=== PATIENT | female | born 1940 | race Caucasian/White ===

== ENCOUNTER → 2016-08-24 | Outpatient (CLI) | payer MEDICARE, SELFPAY ==
--- NOTE | 2016-08-24 10:12 | XR ---
Abdomen HISTORY: Kidney stones, pain on left side Frontal view of the abdomen submitted and correlated to prior abdomen 22 Dec 2014 Multiple calcifications are present within the bilateral kidneys. There are 5 calcifications noted on the right, the largest calcifications are at the mid pole measuring approximately 8 mm, upper pole c alcification measures 9 mm. The left kidney is somewhat obscured by overlying bowel gas, one calcific ation thought present measuring approximately 6 mm. Lung bases are clear. There is no pneumoperitoneu m or bowel obstruction. Vascular calcifications are present, there is a spinal curvature. No obstruct ion or pneumoperitoneum. IMPRESSION: Bilateral nephrolithiasis is suspected.
== END | disposition home or self-care (01) ==
LOC: RADXRMAIN 09:43
PROVIDERS: ATTEND Urology
DX: N20.0 Calculus of kidney (principal)
CPT/HCPCS: 74000

== ENCOUNTER 2016-10-01 07:22 | Day surgery (SDC) | payer MEDICARE, SELFPAY ==
[2016-09-27 10:34] VITALS: BMI 16.6
[~2016-10-01 07:22] MED LIST: LACTATED RINGERS 1,000 ML IV SCH
[2016-10-01 08:07] VITALS: TEMP 97.9
--- NOTE | 2016-10-01 08:09 | XR ---
EXAMINATION TYPE: XR KUB DATE OF EXAM: 10/01/2016 7:59 AM CLINICAL DATA: 75 year-old female prelithotripsy, left-sided stone. [facility] COMPARISON: 08/24/2016 FINDINGS: Nonobstructive bowel gas pattern with a mild to moderate scattered stool. Atherosclerotic calcificati on seen throughout the aorta. There is bilateral nephrolithiasis with approximately 5 calculi on the right measuring up to 8 mm and at least 5 on the left measuring up to 6 mm. Of the stones on the right side appear to have shifted position. Calcific densities in the pelvis is suspected to be vascular. IMPRESSION: Bilateral nephrolithiasis measuring up to 8 mm on the right and 6 mm on the left.
[2016-10-01] MEDS ORDERED: LIDOCAINE 1% 20 ML VIAL (10MG/ML) FOR IV START SQ ONE (08:11)
[2016-10-01 08:37] LABS: Anion Gap 9 mmol/L; Blood Urea Nitrogen 18 mg/dL (7-17); Calcium 8.7 mg/dL (8.4-10.2); Carbon Dioxide 30 mmol/L (22-30); Chloride 106 mmol/L (98-107); Glucose 104 mg/dL (74-99); Non-African American GFR(MDRD) >60 (>60 ml/min/1.73 sqM); Potassium 3.5 mmol/L (3.5-5.1); Sodium 145 mmol/L (137-145)
[2016-10-01] MEDS ORDERED: MIDAZOLAM 2 MG/2 ML VIAL ONE (08:51)
[2016-10-01] MEDS ORDERED: PROPOFOL 10 MG/ML 20 ML VIAL IV ONE (08:51)
[2016-10-01] MEDS ORDERED: fentaNYL (PF) 50 MCG/ML 2 ML AMP ONE (08:51)
[2016-10-01] MEDS ORDERED: PHENYLEPHRINE-0.9% NACL SYG 1 MG/10 ML SYRINGE ONE (08:51)
[2016-10-01 09:44] VITALS: PULSE 86
[2016-10-01 10:00] VITALS: BP 121/78; RESP 18
--- NOTE | 2016-10-01 20:49 | OP ---
DATE OF SERVICE: 10/01/2016 SURGEON: MIA GIORDANO MD PREOPERATIVE DIAGNOSIS: Left renal calculi. POSTOPERATIVE DIAGNOSIS: Left renal calculi. OPERATION: Extracorporeal shockwave lithotripsy of left renal calculi. ANESTHESIA: Intravenous sedation. The patient is a 75-year-old female with a history of urolithiasis who recently developed left flank pain. She was evaluated by Dr. Riggins and noted to have several 2 to 4 mm calculi in the lower pole of the left kidney. Treatment options were reviewed and the patient elected to proceed with ESWL. PROCEDURE: The patient was taken to the operating suite, where adequate intravenous sedation was given. Patient was placed in the supine position on the fluoroscopy table. Her left renal calculi were localized using biplanar fluoroscopy. Lithotripsy was performed using the Dornier compact delta unit. Patient received 2500 shocks at level 4. A 2-minute pause occurred after 200 shocks. There appeared to be fragmentation of the calculi. Anesthesia was reversed and the patient was returned to the recovery room, awake and in satisfactory condition. The patient will be seen back in followup by Dr. Riggins in approximately one week. [facility]
== END 2016-10-01 10:35 | disposition home or self-care (01) ==
LOC: ORWHC2ENDO 07:22
PROVIDERS: ATTEND Urology
DX: N20.0 Calculus of kidney (principal); M10.9 Gout, unspecified; J45.909 Unspecified asthma, uncomplicated; J44.9 Chronic obstructive pulmonary disease, unspecified; F41.9 Anxiety disorder, unspecified; F17.210 Nicotine dependence, cigarettes, uncomplicated; Z88.5 Allergy status to narcotic agent; Z79.82 Long term (current) use of aspirin; Z79.2 Long term (current) use of antibiotics; Z79.51 Long term (current) use of inhaled steroids; Z79.899 Other long term (current) drug therapy; Z86.73 Personal history of transient ischemic attack (TIA), and cerebral infarction without residual deficits
CPT/HCPCS: 50590; 80048; 74000; J2250; J3010; J2370; J2704; 99153

== ENCOUNTER → 2016-10-09 | Outpatient (CLI) | payer MEDICARE, SELFPAY ==
--- NOTE | 2016-10-09 09:49 | XR ---
EXAMINATION TYPE: XR abdomen 1V DATE OF EXAM: 10/09/2016 9:33 AM COMPARISON: 10/01/2016 HISTORY: Post lithotripsy on the left TECHNIQUE: One view abdominal series FINDINGS: Nonobstructive bowel gas pattern with a mild to moderate scattered stool. Atherosclerotic calcificati on seen throughout the aorta. There is bilateral nephrolithiasis with approximately 5 calculi on the right measuring up to 8 mm. There appears to be fragmentation of the left renal calculi. Multiple punctate calculi are seen total ly approximate number of 5 with the largest measuring 3 mm. Calcific densities in the pelvis are most typical of vascular calcifications with the exception of a tiny 1 to 2 mm calcification in the left hemipelvis which could represent a distal ureteral calculus. Degenerative change lower lumbar spine with scoliosis. Arthropathy of the hips. Vascular calcificatio ns noted. IMPRESSION: 1. Bilateral nephrolithiasis measuring up to 8 mm on the right and 6 mm on the left. No significant i nterval change on the right. 2. There appears to be fragmentation of the left renal calculi. Multiple punctate calculi are seen to tally approximate number of 5 with the largest measuring 3 mm. 3. Possible tiny 2 mm left UVJ calculus given appears new from the previous exam
== END ==
LOC: RADXRMAIN 09:19
PROVIDERS: ATTEND Urology
DX: N20.0 Calculus of kidney (principal)
CPT/HCPCS: 74000

== ENCOUNTER → 2016-10-22 | Outpatient (CLI) | payer MEDICARE ==
[2016-10-22 10:36] LABS: Basophils # (A) 0.1 k/uL (0-0.2); Basophils % (A) 1 %; CH 29.8; CHCM 31.8; Eosinophils # (A) 0.2 k/uL (0-0.7); Eosinophils % (A) 2 %; HCT 49.5 % (34.0-46.0); HDW 2.36; HGB 15.8 gm/dL (11.4-16.0); Luc # (Auto) 0.19; Luc % (Auto) 3; Lymphocytes # (A) 0.9 k/uL (1.0-4.8); Lymphocytes % (A) 12 %; MCH 30.1 pg (25.0-35.0); MCV 94.1 fL (80.0-100.0); Mean Platelet Volume 7.4; Monocytes # (A) 0.5 k/uL (0-1.0); Monocytes % (A) 7 %; Neutrophils # (A) 5.2 k/uL (1.3-7.7); Neutrophils % (A) 75 %; RBC 5.26 m/uL (3.80-5.40); RDW 12.9 % (11.5-15.5); WBC (Perox) 6.93
[2016-10-22 10:58] LABS: Anion Gap 11 mmol/L; Blood Urea Nitrogen 14 mg/dL (7-17); Carbon Dioxide 27 mmol/L (22-30); Chloride 103 mmol/L (98-107); Non-African American GFR(MDRD) >60 (>60 ml/min/1.73 sqM); Potassium 3.6 mmol/L (3.5-5.1); Sodium 141 mmol/L (137-145)
== END | disposition home or self-care (01) ==
LOC: LABWHC1 09:56
PROVIDERS: ATTEND Urology
DX: N20.0 Calculus of kidney (principal)
CPT/HCPCS: 80051; 82565; 84520; 85025

== ENCOUNTER 2016-10-29 10:11 | Day surgery (SDC) | payer MEDICARE, SELFPAY ==
[2016-10-24 14:34] VITALS: BMI 17.4
[~2016-10-29 10:11] MED LIST changes: +LIDOCAINE 1% 20 ML VIAL (10MG/ML) FOR IV START INTRADERMA PRN; +ONDANSETRON 4 MG/2 ML VIAL IVP ONE; +Pre Op ABX Message 1 EACH MISC MISCELLANE ONE; +fentaNYL (PF) 50 MCG/ML 2 ML AMP IV PRN
--- NOTE | 2016-10-29 10:19 | XR ---
EXAMINATION TYPE: XR KUB DATE OF EXAM: 10/29/2016 10:06 AM CLINICAL HISTORY: Left-sided lithotripsy last week with right-sided calculi TECHNIQUE: Single supine KUB image of the abdomen is obtained. COMPARISON: Abdominal x-ray October 09, 2016. FINDINGS: There are 4-5 right-sided renal calculi measuring up to 8 mm on long axis redemonstrated. T here is some change in positioning of stones versus prior. Left-sided renal calculi are obscured by o verlying fecal debris. Several small left-sided renal calculi are likely still present. Vascular calc ification and bilateral pelvis is noted. Scattered pelvic phleboliths are present. Overall nonobstructive bowel gas pattern. There is disc space narrowing with sclerosis right L4-L5 le boubacar. Lung bases are clear. IMPRESSION: Bilateral nephrolithiasis redemonstrated, change in position of right-sided renal calculi noted. Subo ptimal evaluation of left-sided calculi noted on current study.
[2016-10-29 10:32] VITALS: RESP 16; TEMP 97.8
[2016-10-29] MEDS ORDERED: PROPOFOL 10 MG/ML 20 ML VIAL IV ONE (11:38)
[2016-10-29] MEDS ORDERED: fentaNYL (PF) 50 MCG/ML 2 ML AMP ONE (11:38)
[2016-10-29] MEDS ORDERED: LIDOCAINE 1% INJ 10MG/ML (20 ML MDV) ONE (11:38)
[2016-10-29] MEDS ORDERED: MIDAZOLAM 2 MG/2 ML VIAL ONE (11:38)
--- NOTE | 2016-10-29 12:15 | P.OP ---
Date of Procedure: 10/29/16 Preoperative Diagnosis: Right renal calculi Postoperative Diagnosis: Same Procedure(s) Performed: Extracorporeal shockwave lithotripsy right, 2500 shocks at energy level IV Anesthesia: MAC Surgeon: Rip Riggins Pathology: none sent Condition: stable Disposition: PACU Indications for Procedure: The patient is a 75-year-old female with recurrent right renal stone Description of Procedure: The patient is brought to the operating suite and placed on the lithotripsy table in a supine position. The largest renal pelvic stone was identified and 1500 shocks at energy level IV administered to fracture the stone. I moved to the upper pole stone and use 500 shocks to fracture and then I've 100 shocks in the right lower pole. In the procedure the stones appeared to fracture she is awake and returned recovery room good condition. She'll be discharged home upon recovery and found the office in one week.
[2016-10-29 12:38] VITALS: BP 114/70; PULSE 88
== END 2016-10-29 13:01 | disposition home or self-care (01) ==
LOC: ORWHC2ENDO 10:11
PROVIDERS: ATTEND Urology
DX: N20.0 Calculus of kidney (principal); M10.9 Gout, unspecified; J45.909 Unspecified asthma, uncomplicated; J44.9 Chronic obstructive pulmonary disease, unspecified; F41.9 Anxiety disorder, unspecified; Z86.73 Personal history of transient ischemic attack (TIA), and cerebral infarction without residual deficits; F17.210 Nicotine dependence, cigarettes, uncomplicated; Z79.82 Long term (current) use of aspirin; Z79.899 Other long term (current) drug therapy; Z88.5 Allergy status to narcotic agent
CPT/HCPCS: 74000; 50590; J2250; J2001; J3010; J2704

== ENCOUNTER → 2016-11-05 | Outpatient (CLI) | payer MEDICARE, SELFPAY ==
--- NOTE | 2016-11-05 07:38 | XR ---
EXAMINATION TYPE: XR KUB DATE OF EXAM ORDERED: 11/05/2016 7:30 AM HISTORY: N20.0 stones. COMPARISON: Previous study dated 10/29/2016. FINDINGS: There is a dextroscoliosis. There are multiple right-sided renal calculi the largest stone overlies the lower pole and measures IMPRESSION: RIGHT-SIDED NEPHROLITHIASIS.
== END | disposition home or self-care (01) ==
LOC: RADXRMAIN 07:15
PROVIDERS: ATTEND Urology
DX: N20.0 Calculus of kidney (principal)
CPT/HCPCS: 74000

== ENCOUNTER → 2016-12-06 | Outpatient (CLI) | payer MEDICARE, SELFPAY ==
--- NOTE | 2016-12-06 10:03 | XR ---
EXAMINATION TYPE: XR abdomen 1V DATE OF EXAM: 12/06/2016 8:38 AM COMPARISON: 10/29/2016 HISTORY: Renal stones TECHNIQUE: One view abdominal series FINDINGS: The osseous structures are intact. The bowel gas pattern is nonspecific. Degenerative change of the spine with scoliosis are noted. Vascular calcification seen. Arthropathy of the hips. Right kidney: There are approximately 9 calcifications overlying the lower and upper pole of the righ t kidney. Largest measures 6 mm. Appear stable in size and position from previous exam. Left kidney: Suspicion of a 2 mm calcification upper pole left kidney. IMPRESSION: 1. Bilateral nephrolithiasis appears stable
== END | disposition home or self-care (01) ==
LOC: RADXRMAIN 08:20
PROVIDERS: ATTEND Urology
DX: N20.0 Calculus of kidney (principal)
CPT/HCPCS: 74000

== ENCOUNTER 2018-03-03 18:30 | Emergency (ER) | payer MEDICARE ==
[2018-03-03] MEDS ORDERED: methylPREDNISolone SOD SUCCI 125 MG/2 ML VIAL IV STA (19:09)
[2018-03-03] MEDS ORDERED: ALPRAZolam 0.5 MG TAB PO STA (19:09)
[2018-03-03 19:23] VITALS: RESP 18
[2018-03-03 19:29] LABS: Basophils # (A) 0.1 k/uL (0-0.2); Basophils % (A) 1 %; Eosinophils # (A) 0.2 k/uL (0-0.7); Eosinophils % (A) 2 %; HCT 48.8 % (34.0-46.0); HGB 15.7 gm/dL (11.4-16.0); Lymphocytes # (A) 2.1 k/uL (1.0-4.8); Lymphocytes % (A) 25 %; MCH 29.1 pg (25.0-35.0); MCHC 32.2 g/dL (31.0-37.0); MCV 90.4 fL (80.0-100.0); Mean Platelet Volume 7.1; Monocytes # (A) 0.6 k/uL (0-1.0); Monocytes % (A) 7 %; Neutrophils # (A) 5.2 k/uL (1.3-7.7); Neutrophils % (A) 63 %; Platelet Count 200 k/uL (150-450); RDW 13.3 % (11.5-15.5); WBC 8.3 k/uL (3.8-10.6)
[2018-03-03 19:39] LABS: Albumin 4.7 g/dL (3.5-5.0); Calcium 9.5 mg/dL (8.4-10.2); Potassium 4.1 mmol/L (3.5-5.1); Total Bilirubin 0.4 mg/dL (0.2-1.3); Total Protein 7.8 g/dL (6.3-8.2)
--- NOTE | 2018-03-03 19:44 | ED ---
SOB HPI - General Chief Complaint: Shortness of Breath Stated Complaint: Diff Breathing Time Seen by Provider: 03/03/18 18:49 Source: family Mode of arrival: wheelchair Limitations: no limitations - History of Present Illness Initial Comments: This is a 77-year-old female to history of COPD who presents emergent department for shortness of breath. She states it started suddenly approximately 30 minutes ago. She states that she got very sweaty and very short of breath. She denied any associated chest pain with this. She states that she currently feels much improved. She states that she did take her inhaler about half an hour prior to this occurring however nothing since then. She states that she has a chronic cough that has not changed. No fevers or chills. Again feels much improved. She states that she also felt "shaky on the inside ". She states that she does have a history of anxiety as well and that she was going to take a Xanax before she came however did not. She denies any other acute complaints. - Related Data Home Medications Medication Instructions Recorded Confirmed Escitalopram [Lexapro] 10 mg PO DAILY 08/12/17 03/03/18 Umeclidinium Brm/Vilanterol Tr 1 puff INHALATION RT-DAILY 08/12/17 03/03/18 [Anoro Ellipta 62.5-25 Mcg INH] Albuterol Inhaler [Ventolin Hfa 2 puff INHALATION RT-Q6H PRN 03/03/18 03/03/18 Inhaler] Albuterol Sulfate [Proair Hfa] 2 puff INHALATION RT-Q4H PRN 03/03/18 03/03/18 Lisinopril [Zestril] 10 mg PO DAILY 03/03/18 03/03/18 Loratadine [Claritin] 10 mg PO DAILY PRN 03/03/18 03/03/18 Previous Rx's Medication Instructions Recorded predniSONE 50 mg PO DAILY #4 tab 03/03/18 Allergies Allergy/AdvReac Type Severity Reaction Status Date / Time morphine AdvReac Severe Nausea & Verified 03/03/18 19:46 Vomiting Review of Systems ROS Statement: Those systems with pertinent positive or pertinent negative responses have been documented in the HPI. ROS Other: All systems not noted in ROS Statement are negative. Past Medical History Past Medical History: Cancer, COPD, CVA/TIA Additional Past Medical History / Comment(s): COPD, cervical cancer, nephrolithiasis, gout, osteoarthritis, previous history of TIA back in November 2013 History of Any Multi-Drug Resistant Organisms: None Reported Past Surgical History: Hysterectomy Additional Past Surgical History / Comment(s): MULTIPLE LITHOTRIPSIES, OPEN SX TO REMOVE RENAL CALCULI , BILATERAL CATARACTS, HAMMER TOE SURGERY LEFT FOOT. Past Anesthesia/Blood Transfusion Reactions: No Reported Reaction Past Psychological History: Anxiety, Depression Smoking Status: Current every day smoker Past Alcohol Use History: None Reported Past Drug Use History: None Reported - Past Family History Sister(s) Family Medical History: Cancer Mother History Unknown: Yes Family Medical History: CVA/TIA, Diabetes Mellitus General Exam - General Exam Comments Initial Comments: Constitutional: Awake alert Appears comfortable Head: Normocephalic atraumatic Eyes: no conjunctival injection No scleral icterus EOMI Neck: No JVD Supple Heart: Regular rate rhythm normal S1-S2 no murmurs Lungs: Decreased breath sounds bilaterally No wheezing Rales at the right lung base Abdomen: Soft nondistended nontender Extremities: Non edematous DP pulses intact Radial pulses intact Neuro: A&Ox3 No focal neurologic deficits Psych: Appropriate mood and affect Limitations: no limitations Course Vital Signs 03/03/18 03/03/18 03/03/18 18:36 19:20 19:42 Temperature 97.6 F Pulse Rate 126 H 106 H Respiratory 20 18 18 Rate Blood Pressure 150/93 144/79 O2 Sat by Pulse 93 L 98 Oximetry 03/03/18 21:00 Temperature 97.4 F L Pulse Rate 97 Respiratory 18 Rate Blood Pressure 99/56 O2 Sat by Pulse 97 Oximetry - Reevaluation(s) Reevaluation #1: 03/03/18 19:50 EKG is showing sinus tachycardia with a rate of 110. There is no abnormal ST segment changes or T-wave inversions. QTC is 452. Other intervals normal. No ectopy. Medical Decision Making - Medical Decision Making This is a 77-year-old female who presents emergency department for shortness of breath. By the time she had gotten here she felt much improved. It was sudden onset and only lasts about 30 minutes. Had no wheezing on examination. Chest x -ray was unremarkable. Blood work was also unremarkable. The patient was given 0.5 Xanax and had much improvement in her symptoms. At this time I feel that the etiology of her shortness of breath is likely more anxiety however she does have a history of COPD and thus I'm going to start him on steroids for the next few days. She has inhalers at home. She states that otherwise she feels well. Pulse oximetry has been normal. The patient will be discharged with her family. Encouraged to return if she has any worsening or changing symptoms. Questions answered. - Lab Data Result diagrams: 03/03/18 18:50 03/03/18 18:50 Lab Results 03/03/18 03/03/18 03/03/18 Range/Units 18:50 18:50 18:50 WBC 8.3 (3.8-10.6) k/uL RBC 5.40 (3.80-5.40) m/uL Hgb 15.7 (11.4-16.0) gm/dL Hct 48.8 H (34.0-46.0) % MCV 90.4 (80.0-100.0) fL MCH 29.1 (25.0-35.0) pg MCHC 32.2 (31.0-37.0) g/dL RDW 13.3 (11.5-15.5) % Plt Count 200 (150-450) k/uL Neutrophils % 63 % Lymphocytes % 25 % Monocytes % 7 % Eosinophils % 2 % Basophils % 1 % Neutrophils # 5.2 (1.3-7.7) k/uL Lymphocytes # 2.1 (1.0-4.8) k/uL Monocytes # 0.6 (0-1.0) k/uL Eosinophils # 0.2 (0-0.7) k/uL Basophils # 0.1 (0-0.2) k/uL Sodium 140 (137-145) mmol/L Potassium 4.1 (3.5-5.1) mmol/L Chloride 105 (98-107) mmol/L Carbon Dioxide 23 (22-30) mmol/L Anion Gap 12 mmol/L BUN 25 H (7-17) mg/dL Creatinine 1.00 (0.52-1.04) mg/dL Est GFR (CKD-EPI)AfAm 64 (>60 ml/min/1.73 sqM) Est GFR (CKD-EPI)NonAf 56 (>60 ml/min/1.73 sqM) Glucose 127 H (74-99) mg/dL Calcium 9.5 (8.4-10.2) mg/dL Magnesium 2.0 (1.6-2.3) mg/dL Total Bilirubin 0.4 (0.2-1.3) mg/dL AST 26 (14-36) U/L ALT 22 (9-52) U/L Alkaline Phosphatase 70 (38-126) U/L Troponin I (0.000-0.034) ng/mL NT-Pro-B Natriuret Pep 287 pg/mL Total Protein 7.8 (6.3-8.2) g/dL Albumin 4.7 (3.5-5.0) g/dL 03/03/18 Range/Units 18:50 WBC (3.8-10.6) k/uL RBC (3.80-5.40) m/uL Hgb (11.4-16.0) gm/dL Hct (34.0-46.0) % MCV (80.0-100.0) fL MCH (25.0-35.0) pg MCHC (31.0-37.0) g/dL RDW (11.5-15.5) % Plt Count (150-450) k/uL Neutrophils % % Lymphocytes % % Monocytes % % Eosinophils % % Basophils % % Neutrophils # (1.3-7.7) k/uL Lymphocytes # (1.0-4.8) k/uL Monocytes # (0-1.0) k/uL Eosinophils # (0-0.7) k/uL Basophils # (0-0.2) k/uL Sodium (137-145) mmol/L Potassium (3.5-5.1) mmol/L Chloride (98-107) mmol/L Carbon Dioxide (22-30) mmol/L Anion Gap mmol/L BUN (7-17) mg/dL Creatinine (0.52-1.04) mg/dL Est GFR (CKD-EPI)AfAm (>60 ml/min/1.73 sqM) Est GFR (CKD-EPI)NonAf (>60 ml/min/1.73 sqM) Glucose (74-99) mg/dL Calcium (8.4-10.2) mg/dL Magnesium (1.6-2.3) mg/dL Total Bilirubin (0.2-1.3) mg/dL AST (14-36) U/L ALT (9-52) U/L Alkaline Phosphatase (38-126) U/L Troponin I <0.012 (0.000-0.034) ng/mL NT-Pro-B Natriuret Pep pg/mL Total Protein (6.3-8.2) g/dL Albumin (3.5-5.0) g/dL Disposition Clinical Impression: COPD (chronic obstructive pulmonary disease), Anxiety Disposition: HOME SELF-CARE Condition: Stable Instructions: COPD (Chronic Obstructive Pulmonary Disease) (ED) Prescriptions: predniSONE 50 mg PO DAILY #4 tab Is patient prescribed a controlled substance at d/c from ED?: No Referrals: Amrik Perkins DO [Primary Care Provider] - 1-2 days
--- NOTE | 2018-03-03 19:56 | XR ---
EXAMINATION TYPE: XR chest 2V DATE OF EXAM: 03/03/2018 COMPARISON: 08/12/2017 HISTORY: Short of breath TECHNIQUE: Frontal and lateral views of the chest are obtained. FINDINGS: Heart is normal. Lungs are clear of consolidation. There is pulmonary hyperinflation and f lattening of the diaphragm. Thoracic aorta is atheromatous. There are chest leads. Bony thorax is int act. IMPRESSION: COPD. No active cardiopulmonary disease. No change.
[2018-03-03 21:00] VITALS: BP 99/56; PULSE 97
[2018-03-03 21:02] VITALS: TEMP 97.4
== END 2018-03-03 21:14 | disposition home or self-care (01) ==
LOC: EC 18:30
DX: J44.9 Chronic obstructive pulmonary disease, unspecified (principal); F41.9 Anxiety disorder, unspecified; F32.9 Major depressive disorder, single episode, unspecified; F17.200 Nicotine dependence, unspecified, uncomplicated; Z79.899 Other long term (current) drug therapy; Z88.5 Allergy status to narcotic agent; Z85.41 Personal history of malignant neoplasm of cervix uteri; Z90.710 Acquired absence of both cervix and uterus
CPT/HCPCS: 36415; 93005; 83880; 80053; 83735; 84484; 85025; 71046; 99285; 96374; J2930

== ENCOUNTER → 2020-09-07 | Outpatient (CLI) | payer MEDICARE ==
--- NOTE | 2020-09-07 13:13 | XR ---
Lumbar spine HISTORY: Trauma and pain 3 views lumbar spine There is loss of height of approximately 50% anteriorly at L1. There is likely minimal retropulsion. There is multilevel spondylosis. Loss of disc height present L4-5. Anterolisthesis grade 1 L5-S1. Bon e mineralization is reduced. There is a slight spinal curvature. Dense atherosclerotic calcifications are present. Calcifications present in the bilateral kidneys. Sclerosis is present in the posterior elements. IMPRESSION: Degenerative disc disease and facet arthropathy. Osteopenia. Compression fracture as desc ribed.
== END | disposition home or self-care (01) ==
LOC: RADXRMAIN 12:04
PROVIDERS: ATTEND Internal Medicine
DX: M51.37 Other intervertebral disc degeneration, lumbosacral region (principal); M47.817 Spondylosis without myelopathy or radiculopathy, lumbosacral region; M85.88 Other specified disorders of bone density and structure, other site; S32.9XXA Fracture of unspecified parts of lumbosacral spine and pelvis, initial encounter for closed fracture
CPT/HCPCS: 72100